=== PATIENT | male | born 1990 | race Caucasian/White ===

== ENCOUNTER 2025-07-15 11:56 | Emergency (ER) | payer BC, SELFPAY ==
[2025-07-15] VITALS (9 sets, daily range): BP systolic 133–158; BP diastolic 62–113; BMI 22.1
[2025-07-15 12:17] LABS: Hematocrit 38.0 % (39.0-52.0); Hemoglobin 13.5 g/dL (13.0-18.0); Mean Corp Hgb Conc. 35.5 g/dL (33.0-37.0); Mean Corpuscular Volume 88.8 fL (80.0-94.0); Nucleated Red Blood Cells % 0 % (-); Platelet Count 213 10^3/uL (130-400); Red Cell Dist. Width 12.0 % (11.5-14.5)
[2025-07-15 12:35] LABS: ALT (SGPT) 24 U/L (0-50); AST (SGOT) 37 U/L (17-59); Albumin 5.0 g/dl (3.5-5.0); Alkaline Phosphatase 80 U/L (38-126); Blood Urea Nitrogen 13 mg/dl (9-20); Calcium 10.2 mg/dl (8.4-10.2); Carbon Dioxide 26 mmol/L (22-30); Chloride 102 mmol/L (98-107); Glucose 107 mg/dl (70-99); Potassium 4.0 mmol/L (3.5-5.1); Sodium 136 mmol/L (135-145); Total Protein 8.0 g/dl (6.3-8.2); eGFR > 60.00
[2025-07-15 12:37] LABS: INR 0.92; PT 12.7 Sec (11.4-14.6)
[2025-07-15] MEDS: CARDIZEM 15 MG IV (12:49)
[2025-07-15 13:16] LABS: Troponin I < 0.012 ng/ml
[2025-07-15] MEDS: NSS 1000 IV (13:18)
--- NOTE | 2025-07-15 13:26 | ED.GENMED ---
History of Present Illness
General
Chief Complaint: Heart Rate Problem
Time Seen by Provider: 07/15/25 12:26
History of Present Illness
History of Present Illness:
34-year-old male without significant past medical history presenting to the emergency department with concern of elevated heart rate and atrial fibrillation. Patient reports this morning he woke up at 5 AM and had palpitations and nausea. Notes
very similar symptoms about 3 years ago, was found to be in A-fib. Reports at that time he was admitted to the hospital, converted in his sleep. He is not on any medications. At the time they thought that it was may be precipitated by drinking a
lot of alcohol. Does report that he was drinking alcohol this weekend. Denies any present chest pain. Denies fever. Denies additional acute medical complaints
Past History
Past History
ED Past Medical History: None
ED Past Surgical History: None
Social History
Tobacco: Non-smoker
Living: with family
Employment: Employed
Phy Exam
Physical Exam
Physical Exam:
General: Well-appearing, no clinical signs of dehydration, nontoxic and in no acute distress
HEENT: protecting airway
Neck: appears supple
CV: irregularly irregular rhythm, tachycardia
Resp: No accessory muscle use, no increased work of breathing, lungs clear to auscultation bilaterally
Abd: No distention
Extremities: No deformities, no swelling
Neuro: alert, no focal neurologic deficit
: deferred
Rectal: deferred
Psych: Normal affect
Skin: Intact
Scores
[id number] Score for Afib Stroke Risk
Age in Years (65=0, 65-74=1, >/=75=2): <65
Sex (Female=+1): Male
Congestive Heart Failure History (Yes=+1): No
Hypertension History (Yes=+1): No
Stroke/TIA/Thromboembolism History (Yes=+2): No
Vascular Disease History (Yes=+1): No
Diabetes Mellitus (Yes=+1): No
Score: 0
Anticoagulation Recommendations: Anticoagulation not indicated (as validated in nonvalvular afib). Consider anticoagulation irrespective of score in patients with HCM
Course
Orders/Labs/Results
Orders:
Orders
07/15/25 11:56
Electrocardiogram (*1) Urgent
Reason for Study: Atrial Fibrillation
07/15/25 11:57
EKG- Treatment ONCE
07/15/25 12:09
Complete Blood Count/With Diff Urgent
Comprehensive Metabolic Panel Urgent
Prothrombin Time Urgent
Troponin I Urgent
07/15/25 12:39
Diltiazem HCl [Cardizem] 15 mg IV NOW STA
07/15/25 13:07
0.9% Sodium Chloride 1000 ml [Nss] 1,000 ml IV BOLUS
07/15/25 14:30
Propofol [Diprivan] 20 ml .ROUTE .STK-MED
07/15/25 15:10
Electrocardiogram (*1) Urgent
Reason for Study: Other
Other Reason for Exam: s/p cadrioversion
EKG- Treatment ONCE
Abnormal Lab Results
07/15/25
12:09
RBC 4.28 L 10^6/uL
(4.70-6.10)
Hct 38.0 L %
(39.0-52.0)
MCH 31.5 H pg
(27.0-31.0)
Neutrophils % 77.0 H %
(42.2-75.2)
Lymphocytes % 15.9 L %
(20.5-51.1)
Glucose 107 H mg/dl
(70-99)
07/15/25 12:09
07/15/25 12:09
Vital Signs
Initial and Last Documented VS:
Initial Vital Signs
Temp Pulse Resp BP Pulse Ox
98.5 F 121 16 158/73 100
07/15/25 11:58 07/15/25 11:58 07/15/25 11:58 07/15/25 11:58 07/15/25 11:58
Last Documented Vital Signs
Temp Pulse Resp BP Pulse Ox
98.2 F 79 18 137/68 98
07/15/25 15:33 07/15/25 15:48 07/15/25 15:48 07/15/25 15:48 07/15/25 15:48
Procedures
Moderate Sedation
ASA Risk Score: Class I
Chart and allergies reviewed: Yes
Consent for anesthesia obtained: Yes
Time out completed (validating right patient & procedure): Yes
Moderate Sedation Start Time(when first medication is given): 15:00
History of difficult intubation: No
Airway free of obstruction: Yes
Patient has a gag reflex: Yes
Patient is able to open mouth: Yes
Patient has no dentures: Yes
Patient has no loose teeth: Yes
Medication administered by Provider during Moderate Sedation: IV Propofol (mg)
Total dose administered: 200
Time drug administered: 15:00
Moderate Sedation Procedure End Time: 15:15
Cardioversion
Indication:: Afib
Performed by:: Glenna Monterroso DO
Synchronized?: Yes
Energy Used: 200 joules
Number of attempts: 1
Successful?: Yes
MDM/Problems Addressed
MDM/Problems Addressed:
34-year-old male with prior history of A-fib presenting for concern of A-fib. Vital signs are significant for tachycardia.
On arrival patient is resting comfortably, no acute distress or discomfort. Symptoms appear most consistent with A-fib with RVR, confirmed with EKG. Patient is certain that his symptoms are today, would be a candidate for cardioversion. Will
discuss with cardiology. Will screen with laboratory analysis and start IV fluids
13:30 - In discussion with cardiology, given that [id number] is 0, no anticoagulation necessary. Note that it would be reasonable to cardiovert him, however given his age and absence of risk factors, is more likely to convert on his own in the
next day to 2 days, with discharge plan for low-dose of diltiazem or metoprolol with outpatient follow-up. Will discuss with patient
15:30 - Patient had opted for cardioversion, subsequently performed without incident. Patient has since converted. Feel stable for discharge. He has an upcoming appointment with cardiology on which was arranged by cardiology here.
Return precautions discussed and patient verbalized understanding
*Pulse Oximetry
SaO2: 100
Oxygen Mode of Delivery: Room air
Patient hypoxic: no
*EKG
Interpreted by ED Provider?: Yes
EKG Intrepretation Date: 07/15/25
EKG Intrepretation Time: 13:29
Interpretation: abnormal
Comparison EKG: no comparison EKG present
Heart Rate: 106
Rate: tachycardiac
Rhythm: a-fib
[place]: normal axis
QRS Pattern: normal QRS
Ischemia: no ischemia
*Critical Care Note
Total Time (30-74mins, 75-104mins- exclusive of procedures): Not Applicable
ED Attending Note
-
Portions of this chart may have been created with voice recognition software.� Occasional wrong word or��sound alike� substitutions may have occurred due to the inherent limitations of voice recognition software.
Discharge Plan
Departure
Patient Disposition: Home (Routine Discharge)
Date of Disposition: 07/15/25
Time of Disposition: 15:41
Patient with high blood pressure during this ER visit?: No
Condition: Good
Discharge Problem:
Atrial fibrillation
Instructions: Atrial Fibrillation (DC), MODERATE SEDATION ADULT
Prescriptions:
No Action
clonazepam [Klonopin] 0.5 mg Tablet,Disintegrating
0.5 mg PO BID
duloxetine [Cymbalta] 60 mg Capsule,Delayed Release(Dr/Ec)
60 mg PO DAILY
Referrals:
NONE,* [Family Provider, Internal Medicine]
Hari Molina MD [Active, Cardiology]
Activity Restrictions/Additional Instructions:
You were seen in the emergency department for atrial fibrillation
You were found to have reassuring laboratory analysis, however you were found to be in atrial fibrillation. You subsequently had synchronized cardioversion. Please follow-up with the lighting designer as scheduled.
Please follow-up closely with your primary care physician.
Return to the emergency department for any worsening of your symptoms, or any development of chest pain, difficulty breathing, abdominal pain with persistent vomiting and inability to tolerate food or liquid by mouth (concern for dehydration),
weakness, headache or confusion, fever greater than 100.4, or any additional symptoms that are concerning to you.
Thank you for choosing [facility].
Interventions
Interventions:
*Risk Screen - Suicide Last Done: 07/15/25 11:58
*Neglect/Abuse Screening Last Done: 07/15/25 11:58
*ED- Fall Risk Assessment Last Done: 07/15/25 11:58
ED- Cardiac Assessment Last Done: 07/15/25 15:26
ED- Pulmonary Assessment Last Done: 07/15/25 15:26
Discharge Date and Time
Print Language: [place]
== END 2025-07-15 16:05 | disposition home or self-care (01) ==
LOC: EMR 11:56
PROVIDERS: EMERGENCY PHYSICIAN Student in an Organized Health Care Education/Training Program
DX: I48.91 Unspecified atrial fibrillation (principal)
CPT/HCPCS: 99285; 92960; 96374; 96361; 80053; 84484; 85025; 85610; 93005

== ENCOUNTER → 2025-08-05 15:42 | Outpatient (REF) | payer BC, SELFPAY | LOC: RCS 15:42 | PROVIDERS: ATTENDING PHYSICIAN Internal Medicine Cardiovascular Disease; FAMILY PHYSICIAN Family Medicine | DX: I48.91 Unspecified atrial fibrillation (principal) | CPT/HCPCS: 93306 ==